=== PATIENT | male | born 1995 | race Caucasian/White ===

== ENCOUNTER 2021-04-01 19:04 | Emergency (ER) | payer BC, OTHER, SELFPAY ==
[2021-04-01 19:08] VITALS: BP 135/77; PULSE 85; RESP 16; TEMP 36.6; O2SAT 98; BMI 32.5
[2021-04-01 20:12] LABS: MANUAL DIFF FLAG NO
[2021-04-01 20:13] LABS: Basophils Absolute Auto 0.1 X10*3/uL (0.0-0.2); Basophils Percent Auto 0.7 % (0-2); Eosinophils Absolute Auto 0.4 X10*3/uL (0.0-0.4); Hematocrit 47.2 % (42-52); Hemoglobin 16.6 g/dl (14.0-18.0); Imm Gran Abs Auto 0.02 X10*3/uL (0.00-0.03); Imm Gran Pct Auto 0.2 % (0.0-0.4); Lymphocytes Absolute Auto 3.3 X10*3/uL (1.2-4.9); Lymphocytes Percent Auto 36.8 % (20-40); Mean Corpuscular HGB Conc 35.2 g/dl (31.0-36.0); Mean Corpuscular Hemoglobin 29.7 pg (27.0-33.0); Mean Corpuscular Volume 84.4 fL (80-98); Mean Platelet Volume 9.6 fL (9.4-12.4); Monocytes Absolute Auto 0.5 X10*3/uL (0.1-1.2); Monocytes Percent Auto 6.1 % (2-11); Neutrophils Absolute Auto 4.6 X10*3/uL (2.0-8.3); Neutrophils Percent Auto 52.2 % (45-73); Platelet Count 272 X10*3/uL (160-400); Red Blood Count 5.59 X10*6/uL (4.60-5.80); Red Cell Distribution Width 11.6 % (11.0-16.0); White Blood Count 8.9 X10*3/uL (4.8-10.8)
[2021-04-01 20:29] LABS: Anion Gap 14 (12-20); Blood Urea Nitrogen 18 mg/dL (9-16); Calcium 10.5 mg/dL (8.4-10.2); Carbon Dioxide 28 mmol/L (22-29); Chloride 102 mmol/L (96-108); Creatinine Clr Calc Pharmacy 138.1; Estimated Glomerular Filt Rate > 60; Glucose Random 89 mg/dL (60-115); Potassium 3.7 mmol/L (3.3-5.1); Sodium 140 mmol/L (135-145)
--- NOTE | 2021-04-01 22:00 | ED.HA ---
HPI - Headache General Chief Complaint: Headache Stated Complaint: FEELS WEIRD Time Seen by Provider: 04/01/21 22:00 Source: patient and family (Mother) Mode of arrival: ambulatory History of Present Illness HPI Narrative: 25-year-old male who presents with acute onset of worst headache of his life that was associated with transient visual disturbance and feeling ?weird?. He also had some mild nausea but otherwise denies any auditory/visual/speech changes and there is positive family history of migraines. Currently, patient feels a little bit better and denies any recent medication changes or new medications. Related Data Home Medications Medication Instructions Recorded Confirmed halobetasol propionate 0.05 % TOPICAL 09/10/20 topical ointment clotrimazole-betamethasone 1 1 appl TOPICAL BID 12/21/20 %-0.05 % topical cream Previous Rx's Medication Instructions Recorded betamethasone dipropionate 0.05 % 1 appl TOPICAL DAILY PRN #45 g 09/10/20 topical ointment triamcinolone acetonide 0.5 % 1 appl TOPICAL TID #15 g 09/10/20 topical cream Allergies Allergy/AdvReac Type Severity Reaction Status Date / Time No Known Allergies Allergy Verified 09/10/20 13:45 Review of Systems Review of Systems: Pertinent positives and negatives as stated in HPI 10 point review of systems is otherwise negative. FORMERLY [facility], [facility] Past Medical History Source: nursing notes reviewed Medical History Dyshidrotic hand dermatitis Surgical History History of wisdom tooth extraction Family History Family History Mother Disease of thyroid gland Father Diabetes High blood pressure Social History Social History Alcohol intake: never Advance Directives: No Advance Directives Information Provided: Yes Physical Exam Vital Signs: Vital Signs: Last Vital Signs Temp 98 F 04/01/21 19:08 Pulse 85 04/01/21 19:08 Resp 16 04/01/21 19:08 BP 135/77 04/01/21 19:08 Pulse Ox 98 04/01/21 19:08 Body Mass Index 32.5 VITAL SIGNS: Reviewed. GENERAL: Well developed, well nourished, in no acute distress. HEAD: Normocephalic/atraumatic EYES: PERRLA, EOMI intact without pain, no nystagmus EARS: Ext canals without abnormality, TMs non-bulging and non-erythematous NOSE: Nares patent bilateral OROPHARYNX: no oral lesions noted, posterior pharynx clear and non-erythematous without noted tonsillar enlargement/erythema/exudates NECK: Supple, no adenopathy LUNGS: Normal breath sounds. No adventitious sounds or accessory muscle use. SpO2<98> CARDIOVASCULAR: Regular rate and rhythm without noted murmurs, no carotid bruits ABDOMEN: Soft, non-tender, non-distended with bowel sounds. SKIN: Inspection of the skin reveals chronic hand dermatitis bilateral NEUROLOGIC: Alert and oriented x 4. Strength and sensation to light touch were grossly intact x 4, no facial asymmetry, no gaze palsies, cranial nerves 2 through 12 grossly intact. Course Course Course Narrative: 25-year-old male with acute onset new headache associated with some disorientation and reported blurriness in the left eye. Although the blurriness in the left eye has resolved will treat with basic labs and conservatively with IV fluids and combination analgesics and re-evaluate for possible dehydration. On re-evaluation patient states he is feeling ?a lot better? and has had almost complete resolution of his headache at this time. Again, on re-evaluation there are no focal findings. Patient is otherwise discharged home in stable condition with instructions to continue to stay well hydrated and he was provided with strict return precautions. MDM - Headache Lab Data Result diagrams: 04/01/21 20:06 04/01/21 20:06 Labs: Lab Results 04/01/21 04/01/21 Range/Units 20:06 20:06 WBC 8.9 (4.8-10.8) X10*3/uL RBC 5.59 (4.60-5.80) X10*6/uL Hgb 16.6 (14.0-18.0) g/dl Hct 47.2 (42-52) % MCV 84.4 (80-98) fL MCH 29.7 (27.0-33.0) pg MCHC 35.2 (31.0-36.0) g/dl RDW 11.6 (11.0-16.0) % Plt Count 272 (160-400) X10*3/uL MPV 9.6 (9.4-12.4) fL Immature Gran % (Auto) 0.2 (0.0-0.4) % Neut % (Auto) 52.2 (45-73) % Lymph % (Auto) 36.8 (20-40) % Worth % (Auto) 6.1 (2-11) % Eos % (Auto) 4.0 (0-4) % Baso % (Auto) 0.7 (0-2) % Lymph # (Auto) 3.3 (1.2-4.9) X10*3/uL Worth # (Auto) 0.5 (0.1-1.2) X10*3/uL Eos # (Auto) 0.4 (0.0-0.4) X10*3/uL Baso # (Auto) 0.1 (0.0-0.2) X10*3/uL Abs Immat Gran (auto) 0.02 (0.00-0.03) X10*3/uL Absolute Neuts (auto) 4.6 (2.0-8.3) X10*3/uL Absolute Nucleated RBC 0.000 (0.0-0.012) X10*3/uL Nucleated RBC % (auto) 0.0 (0.0-0.2) /100WBC Sodium 140 (135-145) mmol/L Potassium 3.7 (3.3-5.1) mmol/L Chloride 102 (96-108) mmol/L Carbon Dioxide 28 (22-29) mmol/L Anion Gap 14 (12-20) BUN 18 H (9-16) mg/dL Creatinine 0.96 (0.5-1.4) mg/dL Estim Creat Clear Calc 138.1 Estimated GFR > 60 Random Glucose 89 (60-115) mg/dL Calcium 10.5 H (8.4-10.2) mg/dL Discharge Plan Discharge Clinical Impression: Dehydration, Headache Patient Disposition: Home, Self-Care Instructions: Dehydration (ED), General Headache (ED) Additional Instructions: Continue to drink plenty of water. Return to the ER for acute worsening of symptoms. Prescriptions: No Action triamcinolone acetonide 0.5 % cream 1 appl topical TID Qty: 15 RF: 8 betamethasone dipropionate 0.05 % ointment 1 appl topical DAILY PRN (Reason: skin irritation) Qty: 45 RF: 8 Referrals: Patel Ott PA-C [Primary Care Provider] - 2 days
[2021-04-01] MEDS: Acetaminophen 325 MG TABLET 975 MG PO (22:15)
[2021-04-01] MEDS: 0.9 % Sodium Chloride 1,000 ML 999 ML IV (22:15)
[2021-04-01] MEDS: Ketorolac Tromethamine 15 MG/ML VIAL IVPUSH (22:16)
== END 2021-04-02 00:01 | disposition home or self-care (01) ==
PROVIDERS: Emergency Provider Student in an Organized Health Care Education/Training Program; PCP Physician Assistant
DX: E86.0 Dehydration (principal); R51.9 Headache, unspecified; Z79.899 Other long term (current) drug therapy
CPT/HCPCS: 36415; 80048; 85025; 96361; 96374; 99283; 99284; J1885

== ENCOUNTER 2021-05-13 13:37 | Outpatient (REF) | payer BC, OTHER, SELFPAY ==
[2021-05-16 08:07] LABS: HBS Num1 1.92 mIU/mL (0-7.99); HBc Num1 0.08 S/CO (0.00-0.79); HBsAGNum1 0.26 S/CO (0.00-0.99); Hepatitis B Core Antibody Nonreactive (Nonreactive); Hepatitis B Surface Antigen Negative (Negative); ~Hepatitis B Surface Antibody NONREACTIVE (Nonreactive)
[2021-05-16 08:16] LABS: ~HepC Num1 0.06 S/CO (0.00-0.79); ~Hepatitis C Antibody Nonreactive (Nonreactive)
== END 2021-05-13 13:38 | disposition home or self-care (01) ==
LOC: HO.HMGCLDS 13:37
PROVIDERS: PCP Physician Assistant; Visit Provider Dermatology
DX: L40.0 Psoriasis vulgaris (principal); Z79.899 Other long term (current) drug therapy
CPT/HCPCS: 36415; 86704; 86706; 86803; 87340

== ENCOUNTER 2021-07-05 14:31 | Outpatient (REF) | payer BC, OTHER, SELFPAY ==
[2021-07-05 15:06] LABS: MANUAL DIFF FLAG NO
[2021-07-05 15:19] LABS: Basophils Percent Auto 0.5 % (0-2); Eosinophils Absolute Auto 0.4 X10*3/uL (0.0-0.4); Eosinophils Percent Auto 4.8 % (0-4); Hematocrit 46.5 % (42.0-52.0); Hemoglobin 16.3 g/dl (14.0-18.0); Imm Gran Abs Auto 0.04 X10*3/uL (0.00-0.03); Imm Gran Pct Auto 0.5 % (0.0-0.4); Lymphocytes Percent Auto 35.8 % (20-40); Mean Corpuscular HGB Conc 35.1 g/dl (31.0-36.0); Mean Corpuscular Hemoglobin 29.7 pg (27.0-33.0); Mean Corpuscular Volume 84.9 fL (80.0-98.0); Mean Platelet Volume 9.6 fL (9.4-12.4); Monocytes Absolute Auto 0.5 X10*3/uL (0.1-1.2); Monocytes Percent Auto 5.9 % (2-11); Neutrophils Absolute Auto 4.3 x10*3/uL (2.0-8.3); Neutrophils Percent Auto 52.5 % (45-73); Platelet Count 287 X10*3/uL (160-400); Red Blood Count 5.48 X10*6/uL (4.60-5.80); Red Cell Distribution Width 11.8 % (11.0-16.0); White Blood Count 8.3 X10*3/uL (4.8-10.8)
[2021-07-05 15:40] LABS: Alanine Aminotransferase 47 U/L (0-40); Albumin Level 4.6 g/dL (3.5-5.0); Alkaline Phosphatase 78 U/L (39-117); Anion Gap 13 (12-20); Aspartate Amino Transferase 38 U/L (5-37); Bilirubin Total 1.1 mg/dL (0.0-1.0); Blood Urea Nitrogen 17 mg/dL (9-16); Calcium 9.9 mg/dL (8.4-10.2); Carbon Dioxide 27 mmol/L (22-29); Chloride 103 mmol/L (96-108); Cholesterol 147 mg/dL; Estimated Glomerular Filt Rate > 60; Glucose Fasting 110 mg/dL (60-99); HDL Cholesterol 28 mg/dL; LDL Cholesterol Calculated 88 mg/dl; Sodium 139 mmol/L (135-145); Total Protein 7.7 g/dL (6.5-8.0); Triglycerides 159 mg/dL
[2021-07-07 19:31] LABS: TS Negative Control Passed; TS Panel A 0; TS Panel B 0; TS Positive Control Passed; TSpotTB Negative (Negative)
== END 2021-07-05 14:32 | disposition home or self-care (01) ==
LOC: HO.LAB 14:31
PROVIDERS: PCP Internal Medicine; Visit Provider Dermatology
DX: Z00.00 Encounter for general adult medical examination without abnormal findings (principal); L40.0 Psoriasis vulgaris; Z79.899 Other long term (current) drug therapy
CPT/HCPCS: 36415; 80053; 80061; 85025; 86481

== ENCOUNTER 2022-04-20 07:55 | Outpatient (REF) | payer BC, OTHER, SELFPAY | END 2022-04-20 07:56 | disposition home or self-care (01) | LOC: HO.HOSX 07:55 | PROVIDERS: Visit Provider Physician Assistant | DX: Z13.89 Encounter for screening for other disorder (principal) ==

== ENCOUNTER 2022-10-19 10:13 | Outpatient (REF) | payer BC, MEDICAID, SELFPAY ==
[2022-10-19 10:21] LABS: MANUAL DIFF FLAG NO
[2022-10-19 10:36] LABS: Basophils Absolute Auto 0.1 X10*3/uL (0.0-0.2); Basophils Percent Auto 0.8 % (0-2); Eosinophils Absolute Auto 0.4 X10*3/uL (0.0-0.4); Eosinophils Percent Auto 4.8 % (0-4); Hematocrit 49.8 % (42.0-52.0); Hemoglobin 17.7 g/dl (14.0-18.0); Imm Gran Abs Auto 0.01 X10*3/uL (0.00-0.03); Imm Gran Pct Auto 0.1 % (0.0-0.4); Lymphocytes Absolute Auto 2.7 X10*3/uL (1.2-4.9); Lymphocytes Percent Auto 37.2 % (20-40); Mean Corpuscular HGB Conc 35.5 g/dl (31.0-36.0); Mean Corpuscular Hemoglobin 30.9 pg (27.0-33.0); Mean Corpuscular Volume 87.1 fL (80.0-98.0); Mean Platelet Volume 9.9 fL (9.4-12.4); Monocytes Absolute Auto 0.5 X10*3/uL (0.1-1.2); Monocytes Percent Auto 7.1 % (2-11); Neutrophils Absolute Auto 3.7 x10*3/uL (2.0-8.3); Platelet Count 266 X10*3/uL (160-400); Red Blood Count 5.72 X10*6/uL (4.60-5.80); Red Cell Distribution Width 11.7 % (11.0-16.0); White Blood Count 7.3 X10*3/uL (4.8-10.8)
[2022-10-19 11:20] LABS: Alanine Aminotransferase 41 U/L (0-40); Albumin Level 4.9 g/dL (3.5-5.0); Alkaline Phosphatase 67 U/L (39-117); Anion Gap 15 (12-20); Aspartate Amino Transferase 38 U/L (5-37); Bilirubin Total 2.3 mg/dL (0.0-1.0); Blood Urea Nitrogen 17 mg/dL (9-16); Calcium 10.2 mg/dL (8.4-10.2); Carbon Dioxide 29 mmol/L (22-29); Chloride 103 mmol/L (96-108); Cholesterol 162 mg/dL; Estimated Glomerular Filt Rate > 60; Glucose Fasting 102 mg/dL (60-99); HDL Cholesterol 31 mg/dL; LDL Cholesterol Calculated 110 mg/dl; Potassium 4.9 mmol/L (3.3-5.1); Sodium 142 mmol/L (135-145); Total Protein 7.8 g/dL (6.5-8.0); Triglycerides 109 mg/dL
[2022-10-19 11:27] LABS: Thyroid Stimulating Hormone 0.73 uIU/mL (0.32-4.0)
[2022-10-20 07:58] LABS: Syphilis Screen Nonreactive (Nonreactive)
[2022-10-20 08:30] LABS: HIV AB/AG Nonreactive (Nonreactive); HIV Num 1 0.05 S/CO (0.00-0.99); ~HepC Num1 0.11 S/CO (0.00-0.79); ~Hepatitis C Antibody Nonreactive (Nonreactive)
[2022-10-20 18:34] LABS: Herpes Simplex Type 1 IgG 5.65 index; Herpes Simplex Type 2 IgG <0.90 index
== END 2022-10-19 10:14 | disposition home or self-care (01) ==
LOC: HO.LAB 10:13
PROVIDERS: PCP Internal Medicine; Visit Provider Internal Medicine
DX: Z11.4 Encounter for screening for human immunodeficiency virus [HIV] (principal); Z20.2 Contact with and (suspected) exposure to infections with a predominantly sexual mode of transmission; E78.5 Hyperlipidemia, unspecified; E03.9 Hypothyroidism, unspecified; D64.9 Anemia, unspecified; N28.9 Disorder of kidney and ureter, unspecified
CPT/HCPCS: 36415; 80053; 80061; 84443; 85025; 86695; 86696; 86780; 86803; 87389

== ENCOUNTER 2023-04-02 09:54 | Outpatient (AMB) | payer MEDICAID, SELFPAY ==
[2023-04-02 09:58] VITALS: BP 122/62; PULSE 65; O2SAT 98; BMI 34.6
--- NOTE | 2023-04-02 09:58 | A.OFFPC_ITS ---
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 per policy Accompanied by: Self / Same As Patient Allergies No Known Allergies Allergy (Verified 04/02/23 09:59) Medication List - Last Reconciled 04/02/23 by Mikal Irvin MD naproxen (Naprosyn) 500 mg PO BID PRN Tobacco use date assessed: 10/18/22 Dental Screening Dental Screen Date: 04/02/23 Did you have a dental visit in the last 12 months?: No Did you have a dental problem in the last 6 months where you did not have access to dental care?: No Was dental information given to patient?: Patient has dentist HPI Discuss clearance for [place] HPI Details has mild psoriasis treated with otc steroid cream; doing well COUNT INCLUDES THE [facility] Medical History Obesity Psoriasis Dyshidrotic hand dermatitis Surgical History History of wisdom tooth extraction Family History Mother Disease of thyroid gland Father Diabetes High blood pressure Social History Housing: House Alcohol intake: never Patient Tobacco Use Status: Never used Tobacco e-Cigarette/Vaping Use: Never Used Second Hand Smoke Exposure: No service: No Current occupational status: employed Cognitive needs: No Hearing needs: No Vision needs: No Questionnaire PHQ-9 Over the last 2 weeks, how often have you been bothered by any of the following problems? 1. Little interest or pleasure in doing things: not at all 2. Feeling down, depressed, or hopeless: not at all 3. Trouble falling or staying asleep, or sleeping too much: not at all 4. Feeling tired or having little energy: not at all 5. Poor appetite or overeating: not at all 6. Feeling bad about yourself - or that you are a failure or have let yourself or your family down: not at all 7. Trouble concentrating on things, such as reading the newspaper or watching television: not at all 8. Moving or speaking so slowly that other people could have noticed. Or the opposite - being so fidgety or restless that you have been moving around a lot more than usual: not at all 9. Thoughts that you would be better off or of hurting yourself in some way: not at all Total score: 0 Depression Screening Interpretation: Negative 51450 - PHQ-9 Billing: Yes Source: Developed by Drs. Segundo Bowman, Lisa Deng, Chris Shepherd and colleagues, with an educational belen from [employer]. Thrive Questionnaire Date Thrive assessed: 10/18/22 AUDIT C Alcohol Use Questionnaire (AUDIT-C) 1. How often do you have a drink containing alcohol?: Never Total Score: 0 Score Reviewed/Action Taken: Yes ADRIANA-7 AMB Questionnaire ADRIANA-7 Date ADRIANA - 7 assessed: 10/18/22 Source: Developed by Drs. Segundo Bowman, Lisa Deng, Chris Shepherd and colleagues, with an educational belen from [employer]. Review of Systems Const Denies chills, Denies headache(s) and Denies weight loss ENT Denies headache(s) Card Denies chest pain, Denies syncope, Denies irregular heart rhythm and Denies dyspnea Resp Denies chest congestion, Denies cough and Denies dyspnea GI Denies abdominal pain, Denies change in stool character, Denies nausea and Denies vomiting Musc Denies deformity and Denies joint swelling Neuro Denies syncope and Denies headache(s) Physical exam (Primary Care) Vital Signs: Last Vital Signs Pulse 65 04/02/23 09:58 BP 122/62 04/02/23 09:58 Pulse Ox 98 04/02/23 09:58 Oxygen Delivery Method Room Air 04/02/23 09:58 BMI result Body Mass Index 34.6 Tobacco/Smoking Status: Tobacco use Status Tobacco use date assessed 10/18/22 04/02/23 10:03 Patient Tobacco Use Status Never used Tobacco 04/02/23 10:03 e-Cigarette/Vaping Use Never Used 04/02/23 10:03 PHQ-9: PHQ-9 Score PHQ-9: Total score 0 04/02/23 10:03 Depression Screening Interpretation: Negative Thrive Assessment: Date of Thrive Assessment Date Thrive assessed 10/18/22 04/02/23 10:03 Const General: cooperative, comfortable, no acute distress and alert Neck Neck: Yes no lymphadenopathy Thyroid: Thyroid normal Resp Effort & Inspection: normal respiratory effort Auscultation: clear to auscultation bilaterally Percussion: percussion normal Cardio Jugular venous distension: no JVD Palpation: normal PMI Rate: regular rate Rhythm: regular rhythm Heart sounds: S1 normal heart sound present and S2 normal heart sound present GI Inspection: Yes normal to inspection Palpation (GI): No hepatosplenomegaly present Skin General skin exam: no rashes or lesions noted Extrem General: Yes no clubbing, cyanosis or edema Assessment and Plan Assessment & Plan (1) Psoriasis: Code(s): L40.9 - Psoriasis, unspecified Plan: stable Coding Level of Care Code Est Pt Level 3 (06481) Diagnoses Psoriasis L40.9
== END 2023-04-02 11:10 | disposition home or self-care (01) ==
PROVIDERS: PCP Internal Medicine; Visit Provider Internal Medicine
DX: L40.9 Psoriasis, unspecified (principal)
CPT/HCPCS: 99213

== ENCOUNTER 2023-08-06 09:38 | Outpatient (AMB) | payer OTHER, MEDICAID, SELFPAY ==
[2023-08-06 09:42] VITALS: BP 120/82; PULSE 72; O2SAT 98; BMI 34.1
--- NOTE | 2023-08-06 09:42 | A.OFFPC_ITS ---
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 per policy Accompanied by: Self / Same As Patient Allergies No Known Allergies Allergy (Verified 08/06/23 09:43) Tobacco use date assessed: 08/06/23 Dental Screening Dental Screen Date: 08/06/23 Did you have a dental visit in the last 12 months?: Yes Did you have a dental problem in the last 6 months where you did not have access to dental care?: No Was dental information given to patient?: Patient has dentist HPI Annual PE/[place] HPI Details Healthy [facility] Medical History Obesity Psoriasis Dyshidrotic hand dermatitis Surgical History History of wisdom tooth extraction Family History Mother Disease of thyroid gland Father Diabetes High blood pressure Social History Housing: House Alcohol intake: never Patient Tobacco Use Status: Never used Tobacco e-Cigarette/Vaping Use: Never Used Second Hand Smoke Exposure: No service: No Current occupational status: employed Cognitive needs: No Hearing needs: No Vision needs: Yes Questionnaire PHQ-9 Over the last 2 weeks, how often have you been bothered by any of the following problems? 1. Little interest or pleasure in doing things: not at all 2. Feeling down, depressed, or hopeless: not at all 3. Trouble falling or staying asleep, or sleeping too much: not at all 4. Feeling tired or having little energy: not at all 5. Poor appetite or overeating: not at all 6. Feeling bad about yourself - or that you are a failure or have let yourself or your family down: not at all 7. Trouble concentrating on things, such as reading the newspaper or watching television: not at all 8. Moving or speaking so slowly that other people could have noticed. Or the opposite - being so fidgety or restless that you have been moving around a lot more than usual: not at all 9. Thoughts that you would be better off or of hurting yourself in some way: not at all Total score: 0 Depression Screening Interpretation: Negative Depression Screening Done: Yes 17653 - PHQ-9 Billing: Yes Source: Developed by Drs. Segundo Bowman, Lisa Deng, Chris Shepherd and colleagues, with an educational belen from [email or web address]. Thrive Questionnaire Date Thrive assessed: 08/06/23 I am a: Patient What is your living situation today?: I have a steady place to live Within the past 12 months, did the food you bought not last and you didn't have the money to get more?: Never true Within the past 12 months, did you worry whether your food would run out before you got money to buy more?: Never true Do you have trouble paying for medicines?: No Do you have trouble getting transportation to medical appointments?: No Do you have trouble paying your heating and electricity bill?: No Do you have trouble taking care of your child, family member or friend?: No Do you have trouble with day-to-day activities such as bathing, preparing meals, shopping, managing finances, etc.?: No Are you currently unemployed and looking for a job?: No Are you interested in more education?: No Please select the resources that you would like help with: None AUDIT C Alcohol Use Questionnaire (AUDIT-C) 1. How often do you have a drink containing alcohol?: Never Total Score: 0 Score Reviewed/Action Taken: Yes ADRIANA-7 AMB Questionnaire ADRIANA-7 Date ADRIANA - 7 assessed: 08/06/23 Feeling nervous, anxious, or on edge: 0 = Not at all Not being able to stop or control worryin = Not at all Worrying too much about different things: 0 = Not at all Trouble relaxin = Not at all Being so restless that it is hard to sit still: 0 = Not at all Becoming easily annoyed or irritable: 0 = Not at all Feeling afraid as if something awful might happen: 0 = Not at all Total ADRIANA-7 score (0-4 normal; 5-9 mild; 10-14 moderate; 15-21 severe): 0 Source: Developed by Drs. Segundo Bowman, Lisa Deng, Chris Shepherd and colleagues, with an educational belen from [email or web address]. ADRIANA-7 Assessment Billing ADRIANA-7 Assessment Tool: ADRIANA-7 Assessment 23057 Review of Systems Const Denies chills, Denies fatigue, Denies headache(s) and Denies weight loss Eyes Denies change in vision, Denies diplopia and Denies eye pain ENT Denies vertigo, Denies dizziness, Denies headache(s) and Denies nasal discharge Card Denies chest pain, Denies rapid heart rate and Denies dyspnea on exertion Resp Denies chest congestion, Denies cough, Denies pain with cough and Denies dyspnea on exertion GI Denies abdominal pain, Denies hematochezia and Denies change in bowel habits Musc Denies myalgias, Denies arthralgias and Denies joint swelling Skin/Breast Denies lesions and Denies unusual bruising Neuro Denies vertigo, Denies dizziness, Denies headache(s) and Denies focal weakness Endo Denies fatigue Physical exam (Primary Care) Vital Signs: Last Vital Signs Pulse 72 08/06/23 09:42 BP 120/82 08/06/23 09:42 Pulse Ox 98 08/06/23 09:42 Oxygen Delivery Method Room Air 08/06/23 09:42 BMI result Body Mass Index 34.1 Tobacco/Smoking Status: Tobacco use Status Tobacco use date assessed 08/06/23 08/06/23 09:44 Patient Tobacco Use Status Never used Tobacco 08/06/23 09:44 e-Cigarette/Vaping Use Never Used 08/06/23 09:44 PHQ-9: PHQ-9 Score PHQ-9: Total score 0 08/06/23 09:44 Depression Screening Interpretation: Negative Thrive Assessment: Date of Thrive Assessment Date Thrive assessed 08/06/23 08/06/23 09:44 Const General: cooperative, healthy appearing and no acute distress Orientation/consciousness: oriented to person, oriented to place and oriented to time HENMN Head: Yes normal to inspection, Yes normocephalic and Yes atraumatic Mouth: Normal oral and palatal mucosa present and tongue normal Throat: Yes posterior oropharynx normal and Yes uvula midline Eyes General: appearance normal, both eyes and all related structures Neck Neck: Yes normal visual inspection, Yes full ROM and Yes no lymphadenopathy Thyroid: Thyroid normal Carotids: normal carotid upstroke Chest Chest palpation & inspection: normal inspection of the chest Resp Effort & Inspection: normal respiratory effort and able to speak in complete sentences Auscultation: clear to auscultation bilaterally Cardio Jugular venous distension: no JVD Palpation: normal PMI Rate: regular rate Rhythm: regular rhythm Heart sounds: S1 normal heart sound present and S2 normal heart sound present GI Inspection: Yes normal to inspection Palpation (GI): Soft to palpation and No hepatosplenomegaly present Auscultation: normal bowel sounds General: Yes no CVA tenderness Back/Spine/Pelvis Back: no CVA tenderness Skin General skin exam: no rashes or lesions noted Neuro General: oriented to person, oriented to place and oriented to time Extrem General: Yes normal to inspection and Yes full ROM Assessment and Plan Assessment & Plan (1) Physical exam: Code(s): Z00.00 - Encounter for general adult medical examination without abnormal findings Plan: stble; do labs Orders: Orders Lipid Panel Today E78.5 - Hyperlipidemia, unspecified Complete Blood Count Auto Diff Today D64.9 - Anemia, unspecified Comprehensive [place]. Panel Fast Today N28.9 - Disorder of kidney and ureter, unspecified Coding Level of Care Code Est Pt Prev Care 18-39y(57128) Diagnoses Physical exam Z00.00 Additional Codes ADRIANA-7 Assessment Billing - ADRIANA-7 Assessment Tool: ADRIANA-7 Assessment 11734 ([id number])
== END 2023-08-06 10:02 | disposition home or self-care (01) ==
PROVIDERS: PCP Internal Medicine; Visit Provider Internal Medicine
DX: Z00.00 Encounter for general adult medical examination without abnormal findings (principal)
CPT/HCPCS: 99395

== ENCOUNTER 2023-08-15 08:04 | Outpatient (AMB) | payer OTHER, MEDICAID, SELFPAY ==
--- NOTE | 2023-08-15 08:05 | MHC.OFFWIV ---
Intake Vital Signs 08/15/23 08:22 Height 5 ft 9 in Weight 230 lb BMI 34.0 BP 122/74 Blood Pressure Location Lt brachial Position Sitting Pulse 64 Pulse Source Pulse Oximeter Temp 97.8 F Temp Source Oral Pulse Oximetry (%) 98 Oxygen Delivery Method Room Air Intake Visit Reasons: EP Work Physical Pt has ppwrk Intake Note: pt is here for work physical, has paperwork Patient Tobacco Use Status: Never used Tobacco Allergies No Known Allergies Allergy (Verified 08/15/23 08:23) Do you need a note to return to daycare/school/sports/work: Yes HPI EP Work Physical Pt has ppwrk HPI Details 28-year-old male presents to the office requesting a school physical. He is joining college to study further. [facility] Medical History Obesity Psoriasis Dyshidrotic hand dermatitis Surgical History History of wisdom tooth extraction Family History Mother Disease of thyroid gland Father Diabetes High blood pressure Social History Housing: House Alcohol intake: never Patient Tobacco Use Status: Never used Tobacco e-Cigarette/Vaping Use: Never Used Second Hand Smoke Exposure: No service: No Current occupational status: employed Cognitive needs: No Hearing needs: No Vision needs: Yes Physical Exam Vital Signs: Last Vital Signs Temp 97.8 F 08/15/23 08:22 Pulse 64 08/15/23 08:22 BP 122/74 08/15/23 08:22 Pulse Ox 98 08/15/23 08:22 Oxygen Delivery Method Room Air 08/15/23 08:22 BMI result Body Mass Index 34.0 Const General: cooperative and healthy appearing Nutritional Appearance: well nourished Orientation/consciousness: patient oriented x3 Limitations: no limitations HEENT Head: Yes normal to inspection Eyes General: appearance normal, both eyes and all related structures Neck Neck: Yes normal visual inspection Chest Chest palpation & inspection: normal palpation of entire chest wall Resp Effort & Inspection: normal respiratory effort Neuro General: patient oriented x3 Assessment & Plan Assessment & Plan (1) Screening examination for infectious disease: Code(s): Z11.9 - Encounter for screening for infectious and parasitic diseases, unspecified Plan: BW ordered (2) School physical exam: Code(s): Z02.0 - Encounter for examination for admission to educational institution Plan: Paper work filled out. BW to check titres ordered. Orders: Orders T Spot TB Today Z02.0 - Encounter for examination for admission to educational institution, Z11.9 - Encounter for screening for infectious and parasitic diseases, unspecified Mumps Virus IgG Antibody Today Z11.9 - Encounter for screening for infectious and parasitic diseases, unspecified Varicella IgG Antibody Today Z11.9 - Encounter for screening for infectious and parasitic diseases, unspecified Rubeola IgG (Measles) Today Z11.9 - Encounter for screening for infectious and parasitic diseases, unspecified Rubella IgG Antibody Today Z11.9 - Encounter for screening for infectious and parasitic diseases, unspecified Coding Level of Care Code Sports/Work/School Physical Diagnoses Screening examination for infectious disease Z11.9 School physical exam Z02.0
[2023-08-15 08:22] VITALS: BP 122/74; PULSE 64; TEMP 36.6; O2SAT 98; BMI 34.0
== END 2023-08-15 08:50 | disposition home or self-care (01) ==
PROVIDERS: PCP Internal Medicine; Visit Provider Internal Medicine
DX: Z11.9 Encounter for screening for infectious and parasitic diseases, unspecified (principal)
CPT/HCPCS: 99212

== ENCOUNTER 2023-08-15 08:48 | Outpatient (REF) | payer OTHER, MEDICAID, SELFPAY ==
[2023-08-15 11:15] LABS: MANUAL DIFF FLAG NO
[2023-08-15 11:22] LABS: Basophils Absolute Auto 0.1 X10*3/uL (0.0-0.2); Basophils Percent Auto 0.7 % (0-2); Eosinophils Absolute Auto 0.2 X10*3/uL (0.0-0.4); Eosinophils Percent Auto 2.4 % (0-4); Hematocrit 48.1 % (42.0-52.0); Hemoglobin 16.7 g/dl (14.0-18.0); Imm Gran Abs Auto 0.02 X10*3/uL (0.00-0.03); Imm Gran Pct Auto 0.3 % (0.0-0.4); Lymphocytes Absolute Auto 2.3 X10*3/uL (1.2-4.9); Lymphocytes Percent Auto 33.9 % (20-40); Mean Corpuscular HGB Conc 34.7 g/dl (31.0-36.0); Mean Corpuscular Hemoglobin 30.1 pg (27.0-33.0); Mean Corpuscular Volume 86.7 fL (80.0-98.0); Mean Platelet Volume 10.5 fL (9.4-12.4); Monocytes Absolute Auto 0.4 X10*3/uL (0.1-1.2); Neutrophils Absolute Auto 3.8 x10*3/uL (2.0-8.3); Neutrophils Percent Auto 56.7 % (45-73); Platelet Count 291 X10*3/uL (160-400); Red Blood Count 5.55 X10*6/uL (4.60-5.80); Red Cell Distribution Width 11.6 % (11.0-16.0); White Blood Count 6.7 X10*3/uL (4.8-10.8)
[2023-08-15 11:56] LABS: Alanine Aminotransferase 65 U/L (0-40); Albumin Level 4.9 g/dL (3.5-5.0); Alkaline Phosphatase 58 U/L (39-117); Anion Gap 13 (12-20); Aspartate Amino Transferase 54 U/L (5-37); Bilirubin Total 2.5 mg/dL (0.0-1.0); Blood Urea Nitrogen 13 mg/dL (9-16); Calcium 9.8 mg/dL (8.4-10.2); Carbon Dioxide 27 mmol/L (22-29); Chloride 102 mmol/L (96-108); Cholesterol 148 mg/dL (<200); Estimated Glomerular Filt Rate > 60; Glucose Fasting 90 mg/dL (60-99); HDL Cholesterol 36 mg/dL (>40); LDL Cholesterol Calculated 90 mg/dL (<100); Potassium 4.1 mmol/L (3.3-5.1); Sodium 138 mmol/L (135-145); Triglycerides 110 mg/dL (<150)
[2023-08-16 08:15] LABS: HBS Num1 1.14 mIU/mL (0-7.99); ~Hepatitis B Surface Antibody NONREACTIVE (Nonreactive)
[2023-08-17 02:33] LABS: Mumps Virus IgG Antibody >300.00 AU/mL; Rubella IgG Antibody 1.83 Index; Rubeola IgG (Measles) >300.00 AU/mL
[2023-08-17 22:53] LABS: TS Negative Control Passed; TS Panel A 0; TS Panel B 0; TS Positive Control Passed; TSpotTB Negative (Negative)
== END 2023-08-15 08:49 | disposition home or self-care (01) ==
LOC: HO.HMGCLDS 08:48
PROVIDERS: PCP Internal Medicine; Referring Provider Internal Medicine; Visit Provider Internal Medicine
DX: Z02.0 Encounter for examination for admission to educational institution (principal); Z11.9 Encounter for screening for infectious and parasitic diseases, unspecified; N28.9 Disorder of kidney and ureter, unspecified; D64.9 Anemia, unspecified; E78.5 Hyperlipidemia, unspecified
CPT/HCPCS: 36415; 80053; 80061; 85025; 86481; 86706; 86735; 86762; 86765; 86787

== ENCOUNTER 2023-09-03 08:39 | Outpatient (AMB) | payer OTHER, MEDICAID, SELFPAY ==
--- NOTE | 2023-09-03 09:01 | MHC.OFFWIV ---
Intake Vital Signs 09/03/23 09:02 Height 5 ft 9 in Weight 230 lb 8 oz BMI 34.0 BP 114/74 Blood Pressure Location Rt brachial Position Sitting Pulse 71 Pulse Source Pulse Oximeter Temp 97.9 F Temp Source Oral Pulse Oximetry (%) 98 Oxygen Delivery Method Room Air Intake Visit Reasons: EP Scratchy throat (masked) Intake Note: Pt is here c/o sore throat Patient Tobacco Use Status: Never used Tobacco Allergies No Known Allergies Allergy (Verified 09/03/23 09:52) Medication List - Last Reconciled 09/03/23 by Archie Pearce MD No Known Home Meds HPI EP Scratchy throat (masked) HPI Details Patient presents for a sick visit. Reporting symptoms of sinus congestion, sore throat and difficulty swallowing. Low-grade fever. No family member is sick. No recent travel. Patient reports symptoms of malaise and fatigue. [facility] Medical History Obesity Psoriasis Dyshidrotic hand dermatitis Surgical History History of wisdom tooth extraction Family History Mother Disease of thyroid gland Father Diabetes High blood pressure Social History Housing: House Alcohol intake: never Patient Tobacco Use Status: Never used Tobacco e-Cigarette/Vaping Use: Never Used Second Hand Smoke Exposure: No service: No Current occupational status: employed Cognitive needs: No Hearing needs: No Vision needs: Yes Physical Exam Vital Signs: Last Vital Signs Temp 97.9 F 09/03/23 09:02 Pulse 71 09/03/23 09:02 BP 114/74 09/03/23 09:02 Pulse Ox 98 09/03/23 09:02 Oxygen Delivery Method Room Air 09/03/23 09:02 BMI result Body Mass Index 34.0 Const General: cooperative and healthy appearing Nutritional Appearance: well nourished Orientation/consciousness: patient oriented x3 Limitations: no limitations HEENT Head: Yes normal to inspection Eyes General: appearance normal, both eyes and all related structures Neck Neck: Yes normal visual inspection Chest Chest palpation & inspection: normal palpation of entire chest wall Resp Effort & Inspection: normal respiratory effort Neuro General: patient oriented x3 Results AMB Rapid Strep AMB Rapid Strep Negative Last Edit by Keely Salguero CMA on 09/03/23 09:26 Results Reviewed Results Reviewed: Laboratory Last Values Strep Scn Rapid Clinic Negative 09/03/23 09:24 Assessment & Plan Assessment & Plan (1) Upper respiratory tract infection: Code(s): J06.9 - Acute upper respiratory infection, unspecified Plan: Antibiotics ordered. Increase fluid intake. Tylenol for aches and pains. If symptoms worsen, follow-up here for a recheck. Orders: Orders AMB Rapid Strep Screen Today Z13.9 - Encounter for screening, unspecified Coding Level of Care Code Est Pt Level 3 (81319) Diagnoses Upper respiratory tract infection J06.9
[2023-09-03 09:02] VITALS: BP 114/74; PULSE 71; TEMP 36.6; O2SAT 98; BMI 34.0
== END 2023-09-03 09:50 | disposition home or self-care (01) ==
PROVIDERS: PCP Internal Medicine; Visit Provider Internal Medicine
DX: J06.9 Acute upper respiratory infection, unspecified (principal); J02.9 Acute pharyngitis, unspecified
CPT/HCPCS: 87880; 99213

== ENCOUNTER 2023-10-15 08:28 | Outpatient (AMB) | payer OTHER, MEDICAID, SELFPAY ==
[2023-10-15 08:39] VITALS: BP 118/72; PULSE 60; O2SAT 98; BMI 34.0
--- NOTE | 2023-10-15 08:39 | MHC.PC.OV ---
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 Accompanied by: Self / Same As Patient Allergies No Known Allergies Allergy (Verified 10/15/23 08:46) Tobacco use date assessed: 08/06/23 HPI Discuss second opinion for psoriasis HPI Details seeing dermatology for a rash on his hands and would like a second opinion [facility] Medical History Obesity Psoriasis Dyshidrotic hand dermatitis Surgical History History of wisdom tooth extraction Family History Mother Disease of thyroid gland Father Diabetes High blood pressure Social History Housing: House Alcohol intake: never Patient Tobacco Use Status: Never used Tobacco e-Cigarette/Vaping Use: Never Used Second Hand Smoke Exposure: No service: No Current occupational status: employed Cognitive needs: No Hearing needs: No Vision needs: Yes Questionnaire Thrive Questionnaire Date Thrive assessed: 08/06/23 ADRIANA-7 AMB Questionnaire ADRIANA-7 Date ADRIANA - 7 assessed: 08/06/23 Source: Developed by Drs. Segundo Bowman, Lisa Deng, Chris Shepherd and colleagues, with an educational belen from [employer]. Review of Systems Const Denies chills, Denies headache(s) and Denies weight loss ENT Denies headache(s) Card Denies chest pain, Denies syncope, Denies irregular heart rhythm and Denies dyspnea Resp Denies chest congestion, Denies cough and Denies dyspnea GI Denies abdominal pain, Denies change in stool character, Denies nausea and Denies vomiting Musc Denies deformity and Denies joint swelling Neuro Denies syncope and Denies headache(s) Physical exam (Primary Care) Vital Signs: Last Vital Signs Pulse 60 10/15/23 08:39 BP 118/72 10/15/23 08:39 Pulse Ox 98 10/15/23 08:39 Oxygen Delivery Method Room Air 10/15/23 08:39 BMI result Body Mass Index 34.0 Tobacco/Smoking Status: Tobacco use Status Tobacco use date assessed 08/06/23 10/15/23 08:43 Patient Tobacco Use Status Never used Tobacco 10/15/23 08:43 e-Cigarette/Vaping Use Never Used 10/15/23 08:43 Thrive Assessment: Date of Thrive Assessment Date Thrive assessed 08/06/23 10/15/23 08:43 Const General: cooperative, comfortable, no acute distress and alert Neck Neck: Yes no lymphadenopathy Thyroid: Thyroid normal Resp Effort & Inspection: normal respiratory effort Auscultation: clear to auscultation bilaterally Percussion: percussion normal Cardio Jugular venous distension: no JVD Palpation: normal PMI Rate: regular rate Rhythm: regular rhythm Heart sounds: S1 normal heart sound present and S2 normal heart sound present GI Inspection: Yes normal to inspection Palpation (GI): No hepatosplenomegaly present Skin General skin exam: no rashes or lesions noted Extrem General: Yes no clubbing, cyanosis or edema Assessment and Plan Assessment & Plan (1) Psoriasis: Code(s): L40.9 - Psoriasis, unspecified Plan: referred Orders: Referrals Dermatology Referral L40.9 - Psoriasis, unspecified Psychology Referral F84.0 - Autistic disorder Coding Level of Care Code Est Pt Level 3 (60415) Diagnoses Psoriasis L40.9
== END 2023-10-15 08:52 | disposition home or self-care (01) ==
PROVIDERS: PCP Internal Medicine; Visit Provider Internal Medicine
DX: L40.9 Psoriasis, unspecified (principal)
CPT/HCPCS: 99213